=== PATIENT | male | born 1965 | race Caucasian/White ===

== ENCOUNTER → 2024-03-11 | Outpatient (CLI) | payer MEDICAID ==
--- NOTE | 2024-03-11 20:55 | MR ---
EXAMINATION TYPE: MR cervical spine wo con DATE OF EXAM: 03/11/2024 8:24 PM COMPARISON: None. CLINICAL INDICATION: Male, 58 years old with history of M54.2 CERVICALGIA; PHH, Neck pain for 2 years that causes tingling down right shoulder/arm and right thumb numbness. TECHNIQUE: Multi planar, multi sequence imaging was performed utilizing: T1-weighted, T2-weighted, an d turbo inversion recovery imaging of the cervical spine. IV Contrast: mL (None, if empty) FINDINGS: Alignment: The cervical vertebral bodies have preserved heights. Alignment is within normal limits gi mica patient positioning. Bones: Bone marrow signal demonstrates mild reactive edema in the adjoining endplates of C3-C4 and C6 -C7 posteriorly. There is extensive edema around the lateral processes/facet joints of C3-C4 on the r ight series 501 image 17/. Edema surrounds the exiting right nerve at this level. 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 Cord: The spinal cord is unremarkable with regards to their signal intensity and morphology. Discs: Intervertebral disc signal is maintained. C2-C3: No significant disc pathology. The spinal canal is patent. No neural foraminal stenosis. C3-C4: No significant disc pathology. The spinal canal is patent. No neural foraminal stenosis. C4-C5: No significant disc pathology. The spinal canal is patent. No neural foraminal stenosis. C5-C6: No significant disc pathology. The spinal canal is patent. No neural foraminal stenosis. C6-C7: No significant disc pathology. The spinal canal is patent. No neural foraminal stenosis. C7-T1: No significant disc pathology. The spinal canal is patent. No neural foraminal stenosis. Other: None. IMPRESSION: 1. No evidence for disc herniation or significant spinal canal stenosis. 2. Right C3-C4 lateral processes articulation within the bones and surrounding tissues including the exiting right nerve at C3-C4. Correlate with physical exam. 3. Mild disc degeneration with associated osteoarthritic changes. [facility], , 03/11/2024 8:52 PM [facility], , 03/11/2024 8:53 PM
== END | disposition home or self-care (01) ==
LOC: RADMRIMAIN 19:26
PROVIDERS: ATTEND Internal Medicine
DX: M50.30 Other cervical disc degeneration, unspecified cervical region (principal); R20.2 Paresthesia of skin
CPT/HCPCS: 72141